=== PATIENT | female | born 1950 | race Hispanic/Latino ===

== ENCOUNTER → 2019-08-04 | Day surgery (SDC) | payer MEDICARE ==
[2019-08-03 12:22] LABS: BASOPHILS # (AUTO) 0.1 (0.0-0.1); BASOPHILS % 0.4 % (0.0-1.0); EOSINOPHILS # (AUTO) 0.2 (0.0-0.4); HEMATOCRIT 41.6 % (34.2-44.1); LYMPHOCYTES # (AUTO) 4.1 (1.0-3.2); LYMPHOCYTES % 34.4 % (18.0-39.1); MEAN CORPUSCULAR HEMOGLOBIN 28.4 pg (28-32); MEAN CORPUSCULAR HGB CONC 31.3 g/dL (31-35); MEAN CORPUSCULAR VOLUME 90.8 fL (81-99); MONOCYTES # (AUTO) 0.7 (0.2-0.8); MONOCYTES % 6.1 % (4.4-11.3); NEUTROPHILS # (AUTO) 6.7 (2.1-6.9); NEUTROPHILS % 56.8 % (38.7-80.0); PLATELET COUNT 289 x10e3/uL (140-360); RED BLOOD COUNT 4.58 x10e6/uL (3.6-5.1); RED CELL DISTRIBUTION WIDTH 13.3 % (11.7-14.4)
[~2019-08-04] MED LIST: CLOPIDOGREL75 MG PO; CRESTOR10 MG PO; LIDOCAINE HCL 2% LOCAL INJ 5 ML SDV VIAL INJ ONE; LISINOPRIL-HCT1 EAC2 PO; MECLIZINE HCL12.5 MG PO; MIDAZOLAM HCL 2 MG/2 ML VIAL ONE; NOVOLIN N100 UNIT/1 SQ; NOVOLIN R100 UNIT/1 SQ; PROPOFOL IV EMULSION 10 MG/ML 50 ML VIAL ONE
--- OUTSIDE RECORDS SUMMARY | 2019-08-04 06:40 | XMS REPORT ---
Author Author [facility] Address Unknown Phone Unavailable Care Team Providers Care Configuration Technician Name Role Phone Unavailable Unavailable Payers Payer Name Policy Type Policy Number Effective Date Expiration Date Problems This patient has no known problems. Allergies, Adverse Reactions, Alerts Allergy Name Allergy Type Status Severity Reaction(s) Onset Date Inactive Date Treating Clinician Comments No Known Allergies DA Active U 2017-08-05 00:00:00 Medications This patient has no known medications. Results Test Description Test Time Test Comments Text Results Atomic Results Result Comments GLUBED 2019-05-10 12:03:00 GLUBED (test code=GLUBED) 239 mg/dL 74-106 Performed by certified cover making machine operator at [facility] [id number] 07:34:00* Test Item Value Reference Range Comments GLUBED (test code=GLUBED) 173 mg/dL 74-106 Performed by certified cover making machine operator at [facility] [id number] 20:42:00* Test Item Value Reference Range Comments GLUBED (test code=GLUBED) 223 mg/dL 74-106 Performed by certified cover making machine operator at [facility] [id number] 16:23:00* Test Item Value Reference Range Comments GLUBED (test code=GLUBED) 172 mg/dL 74-106 Performed by certified cover making machine operator at [facility] [id number] 11:41:00* Test Item Value Reference Range Comments GLUBED (test code=GLUBED) 205 mg/dL 74-106 Performed by certified cover making machine operator at [facility] [id number] 07:23:00* Test Item Value Reference Range Comments GLUBED (test code=GLUBED) 128 mg/dL 74-106 Performed by certified cover making machine operator at [facility] BASIC METABOLIC [id number] 06:17:00* Test Item Value Reference Range Comments SODIUM (test code=NA) 138 mmol/L 136-145 POTASSIUM (test code=K) 4.1 mmol/L 3.5-5.1 CHLORIDE (test code=CL) 105.0 mmol/L 98-107 CARBON DIOXIDE (test code=CO2) 23.0 mmol/L 21-32 ANION GAP (test code=GAP) 14.1 10-20 GLUCOSE (test code=GLU) 134 mg/dL 74-106 BLOOD UREA NITROGEN (test code=BUN) 13 mg/dL 7-18 GLOMERULAR FILTRATION RATE (test code=GFR) > 60 mL/min >=60 Estimated GFR by using Modified MDRD formula.Chronic kidney disease is defined as either kidney damageor GFR <60 mL/min/1.73 m2 for >3 months. CREATININE (test code=CREAT) 0.80 mg/dL 0.55-1.02 Note change in reference range due to change in reagent. BUN/CREATININE RATIO (test code=BUN/CREA) 16.3 10-20 CALCIUM (test code=CA) 8.8 mg/dL 8.5-10.1 LIPID PROFILE (CORONARY RISK)2019-05-09 06:17:00* Test Item Value Reference Range Comments TRIGLYCERIDES (test code=TRIG) 142 mg/dL 20-150 CHOLESTEROL (test code=CHOL) 155 mg/dL 0-200 CHOLESTEROL/HDL RATIO (test code=CHOLHDL) 3.0 RATIO 0-4.9 RISK ASSOCIATED WITH CHOL/HDL RATIOS: Risk Male Female1/2 AVERAGE 3.43 3.27AVERAGE 4.97 4.442X AVERAGE 9.55 7.053X AVERAGE 23.39 11.04 REFERENCE VALUE IS RELATED TO RISK LEVELS ASRECOMMENDED BY THE ABBEY. HEART, LUNG, AND BLOOD INST. HDL CHOLESTEROL (test code=HDL) 49 mg/dL 40-60 LIPOPROTEIN LDL (test code=LDL) 82 mg/dL 100-129 Reference Interval: mg/dL mmol/L Optimal <100 <2.6Near/above optimal 100-129 2.6- 3.3Borderline High 130-159 3.4-4.1High 160-189 4.1-4.9Very High >=190 >=4.9=========This LDL result is a direct measurement.========= [id number] 06:06:00* Test Item Value Reference Range Comments GLYCOSYLATED HEMOGLOBIN (HA1C) (test code=GLYHGB) 8.5 % HbA1 4.8-6.0 ESTIMATED AVERAGE GLUCOSE (test code=EAG) 197 MG/DL CBC W/AUTO [id number] 05:50:00* Test Item Value Reference Range Comments WHITE BLOOD CELL (test code=WBC) 9.0 K/mm3 4.5-12.5 RED BLOOD CELL (test code=RBC) 4.26 mill/mm3 3.7-5.2 HEMOGLOBIN (test code=HGB) 12.1 gram/dL 11.5-15.5 HEMATOCRIT (test code=HCT) 39.6 % 36.0-46.0 MEAN CELL VOLUME (test code=MCV) 93.0 fL 80-98 MEAN CELL HGB (test code=MCH) 28.4 picogram 27.0-33.0 MEAN CELL HGB CONCETRATION (test code=MCHC) 30.6 gram/dL 33.0-36.0 RED CELL DISTRIBUTION WIDTH (test code=RDW) 12.8 % 11.6-16.2 RED CELL DISTRIBUTION WIDTH SD (test code=RDW-SD) 43.3 fL 37.0-51.0 PLATELET COUNT (test code=PLT) 254 K/mm3 150-450 MEAN PLATELET VOLUME (test code=MPV) 9.8 fL 6.7-11.0 NEUTROPHIL % (test code=NT%) 45.1 % 39.0-69.0 IMMATURE GRANULOCYTE % (test code=IG%) 0.3 % 0.0-5.0 LYMPHOCYTE % (test code=LY%) 43.6 % 25.0-55.0 MONOCYTE % (test code=MO%) 7.5 % 0.0-10.0 EOSINOPHIL % (test code=EO%) 2.8 % 0.0-5.0 BASOPHIL % (test code=BA%) 0.7 % 0.0-1.0 NUCLEATED RBC % (test code=NRBC%) 0.0 % 0-0 NEUTROPHIL # (test code=NT#) 4.05 K/mm3 1.8-7.7 IMMATURE GRANULOCYTE # (test code=IG#) 0.03 x10 3/uL 0-0.03 LYMPHOCYTE # (test code=LY#) 3.91 K/mm3 1.0-5.0 MONOCYTE # (test code=MO#) 0.67 K/mm3 0-0.8 EOSINOPHIL # (test code=EO#) 0.25 K/mm3 0.0-0.5 BASOPHIL # (test code=BA#) 0.06 K/mm3 0.0-0.2 NUCLEATED RBC # (test code=NRBC#) 0.00 K/mm3 0.0-0.1 MANUAL DIFF REQUIRED (test code=MDIFF) NO CBC W/AUTO [id number] 05:48:00* Test Item Value Reference Range Comments WHITE BLOOD CELL (test code=WBC) K/mm3 4.5-12.5 RED BLOOD CELL (test code=RBC) mill/mm3 3.7-5.2 HEMOGLOBIN (test code=HGB) 12.1 gram/dL 11.5-15.5 HEMATOCRIT (test code=HCT) 39.6 % 36.0-46.0 MEAN CELL VOLUME (test code=MCV) fL 80-98 MEAN CELL HGB (test code=MCH) picogram 27.0-33.0 MEAN CELL HGB CONCETRATION (test code=MCHC) gram/dL 33.0-36.0 RED CELL DISTRIBUTION WIDTH (test code=RDW) % 11.6-16.2 RED CELL DISTRIBUTION WIDTH SD (test code=RDW-SD) fL 37.0-51.0 PLATELET COUNT (test code=PLT) K/mm3 150-450 MEAN PLATELET VOLUME (test code=MPV) fL 6.7-11.0 NEUTROPHIL % (test code=NT%) % 39.0-69.0 IMMATURE GRANULOCYTE % (test code=IG%) % 0.0-5.0 LYMPHOCYTE % (test code=LY%) % 25.0-55.0 MONOCYTE % (test code=MO%) % 0.0-10.0 EOSINOPHIL % (test code=EO%) % 0.0-5.0 BASOPHIL % (test code=BA%) % 0.0-1.0 NEUTROPHIL # (test code=NT#) K/mm3 1.8-7.7 LYMPHOCYTE # (test code=LY#) K/mm3 1.0-5.0 MONOCYTE # (test code=MO#) K/mm3 0-0.8 EOSINOPHIL # (test code=EO#) K/mm3 0.0-0.5 BASOPHIL # (test code=BA#) K/mm3 0.0-0.2 [id number] 01:43:00* Test Item Value Reference Range Comments TROPONIN-I (test code=TROPI) <0.015 ng/mL 0-0.045 COMMENTS TO AIR POLLUTION INSPECTOR: COLLECT 3 HOURS AFTER PREVIOUS [id number] 22:21:00* Test Item Value Reference Range Comments TROPONIN-I (test code=TROPI) <0.015 ng/mL 0-0.045 COMMENTS TO AIR POLLUTION INSPECTOR: COLLECT 3 HOURS AFTER PREVIOUS SAMPLE- CT ABD PELVIS [id number] 15:48:00 Name: YAMILETH SHEPARD [facility] : 1950 Age/S: 68 / F [address] [facility] Unit #: [id number] Loc: [place] [address] Phys: Andrew Adamson MD Acct: [id number] Dis Date: Status: REG ER PHONE #: [phone] Exam Date: 05/08/2019 4888 FAX #: [phone] Reason: upper abd pain EXAMS: CPT CODE: [id number] CT ABD PELVIS W/CONT [id number] REASON FOR EXAM: upper abd pain EXAM ORDER DATE: 05/08/2019 1:40 PM Ordering M.DKira: Andrew Adamson MD PROCEDURE: - CT ABD PELVIS W/CONT contrast-enhanced axial CT images were acquired through the abdomen/pelvis at 5 mm intervals. Sagittal and coronal reformatted images were generated. Automated exposure control was utilized for this reduction. Phases of contrast: venous and delayed COMPARISON: None FINDINGS: Visualized thorax: Normal Hepatobiliary system: Scattered calcified granulomas are present in the liver. Pancreas: Atrophic with fatty replacement. Spleen: Normal Adrenal glands: Normal Genitourinary system: Areas of cortical thinning in the mid pole to upper pole of the left kidney may represent scarring from a remote infectious process. Bladder and reproductive organs are within normal limits. Gastrointestinal tract and a ppendix: Calcified appendicolith is present. No findings to suggest append icitis however. Stomach and small bowel are within normal limits. Moderate colonic stool burden is present. Abdominal vascular structu res: Atherosclerotic disease is seen throughout the abdominal aorta and ex tends into the iliac arteries. Peritoneum and retroperitoneum: No free fluid or free air. No omental or mesenteric masses. No abnormal lym ph nodes. Musculoskeletal structures and abdominal wall: Degenerat celine changes PAGE 1 Signed Report ( CONTINUED) Name: YAMILETH SHEPARD [facility] : 1950 Age/S: 68 / F [address] [facility] U nit #: [id number] Loc: [place] [address] Phys: Andrew Adamson MD Acct: [id number] Dis Date: Status: REG ER PHONE #: [phone] Exam Date: 05/08/2019 1514 FAX #: [phone] Reason: upper abd pain EXAMS: CPT CODE: [id number] CT ABD PELVIS W/CONT [id number] <Continued> are seen throughout the visualized spine. IMPRESSION: No acute intra-abdominal process. Calcified granulomas in the liver may be from a remote infectious process. Cortical scarring in the left kidney likely represent sequela from a remote infection. Calcified appendicolith. No CT findings to suggest acute appendicitis however. at 15 48 Reported and signed by: Sammy Moody MD CC: Jonathan Barr M.D.; Andrew Adamson MD Technol ogist:Dominga Ruiz RT(R),CT CTDI: DLP: Trnscb Date/Time: 05/08/2019 (6760) [id number] Orig Print D/T: S: 05/08/2019 (5146) PAGE 2 Signed Report URINALYSIS [id number] 15:02:00* Test Item Value Reference Range Comments UA COLOR (test code=COLU) COLORLESS YELLOW UA APPEARANCE (test code=APPU) CLEAR CLEAR UA GLUCOSE DIPSTICK (test code=DGLUU) 300 (2+) mg/dL NEGATIVE UA BILIRUBIN DIPSTICK (test code=BILU) NEGATIVE mg/dL NEGATIVE UA KETONE DIPSTICK (test code=KETU) NEGATIVE mg/dL NEGATIVE UA SPECIFIC GRAVITY (test code=SGU) 1.005 1.001-1.035 UA BLOOD DIPSTICK (test code=SERJIO) Negative mg/dL NEGATIVE UA PH DIPSTICK (test code=KIRBY) 7.5 5.0-8.0 UA PROTEIN DIPSTICK (test code=PROU) NEGATIVE mg/dL NEGATIVE UA UROBILINIOGEN DIPSTICK (test code=URO) Normal mg/dL NEGATIVE UA NITRITE DIPSTICK (test code=CRICKET) NEGATIVE NEGATIVE UA LEUKOCYTE ESTERASE W REFLEX (test code=LEUUR) NEGATIVE Lamont/uL NEGATIVE UA WBC (test code=WBCU) 0-5 per HPF 0-5 UA RBC (test code=RBCU) NONE SEEN #/HPF 0-5 UA EPITHELIAL CELLS (test code=EPIU) FEW per HPF FEW UA BACTERIA (test code=BACU) NONE SEEN #/HPF NONE Urine Source? Clean CatchBASIC METABOLIC [id number] 14:36:00* Test Item Value Reference Range Comments SODIUM (test code=NA) 136 mmol/L 136-145 POTASSIUM (test code=K) 4.3 mmol/L 3.5-5.1 CHLORIDE (test code=CL) 101.0 mmol/L 98-107 CARBON DIOXIDE (test code=CO2) 29.0 mmol/L 21-32 ANION GAP (test code=GAP) 10.3 10-20 GLUCOSE (test code=GLU) 242 mg/dL 74-106 BLOOD UREA NITROGEN (test code=BUN) 17 mg/dL 7-18 GLOMERULAR FILTRATION RATE (test code=GFR) 45 mL/min >=60 Estimated GFR by using Modified MDRD formula.Chronic kidney disease is defined as either kidney damageor GFR <60 mL/min/1.73 m2 for >3 months. CREATININE (test code=CREAT) 1.20 mg/dL 0.55-1.02 Note change in reference range due to change in reagent. BUN/CREATININE RATIO (test code=BUN/CREA) 14.2 10-20 CALCIUM (test code=CA) 9.2 mg/dL 8.5-10.1 HEPATIC FUNCTION [id number] 14:36:00* Test Item Value Reference Range Comments TOTAL PROTEIN (test code=PROT) 7.8 gram/dL 6.4-8.2 ALBUMIN (test code=ALB) 3.7 g/dL 3.4-5.0 GLOBULIN (test code=GLOB) 4.1 gram/dL 2.7-4.2 ALBUMIN/GLOBULIN RATIO (test code=A/G) 0.9 0.75-1.50 BILIRUBIN TOTAL (test code=BILT) 0.30 mg/dL 0.0-1.0 BILIRUBIN DIRECT (test code=BILD) 0.10 mg/dL 0.0-0.20 SGOT/AST (test code=AST) 27 IUnit/L 15-37 SGPT/ALT (test code=ALT) 25 IUnit/L 12-78 ALKALINE PHOSPHATASE TOTAL (test code=ALKP) 76 IUnit/L 45-117 Note change in reference range due to change in reagent. [id number] 14:36:00* Test Item Value Reference Range Comments LIPASE (test code=LIP) 65 U/L 73.0-393.0 [id number] 14:36:00* Test Item Value Reference Range Comments TROPONIN-I (test code=TROPI) <0.015 ng/mL 0-0.045 BASIC METABOLIC [id number] 14:26:00* Test Item Value Reference Range Comments SODIUM (test code=NA) 136 mmol/L 136-145 POTASSIUM (test code=K) 4.3 mmol/L 3.5-5.1 CHLORIDE (test code=CL) 101.0 mmol/L 98-107 CARBON DIOXIDE (test code=CO2) mmol/L 21-32 ANION GAP (test code=GAP) 10-20 GLUCOSE (test code=GLU) mg/dL 74-106 BLOOD UREA NITROGEN (test code=BUN) mg/dL 7-18 GLOMERULAR FILTRATION RATE (test code=GFR) mL/min >=60 CREATININE (test code=CREAT) mg/dL 0.55-1.02 BUN/CREATININE RATIO (test code=BUN/CREA) 10-20 CALCIUM (test code=CA) mg/dL 8.5-10.1 HEPATIC FUNCTION [id number] 14:26:00* Test Item Value Reference Range Comments TOTAL PROTEIN (test code=PROT) gram/dL 6.4-8.2 ALBUMIN (test code=ALB) g/dL 3.4-5.0 GLOBULIN (test code=GLOB) gram/dL 2.7-4.2 ALBUMIN/GLOBULIN RATIO (test code=A/G) 0.75-1.50 BILIRUBIN TOTAL (test code=BILT) mg/dL 0.0-1.0 BILIRUBIN DIRECT (test code=BILD) mg/dL 0.0-0.20 SGOT/AST (test code=AST) IUnit/L 15-37 SGPT/ALT (test code=ALT) IUnit/L 12-78 ALKALINE PHOSPHATASE TOTAL (test code=ALKP) IUnit/L 45-117 [id number] 14:26:00* Test Item Value Reference Range Comments LIPASE (test code=LIP) U/L 73.0-393.0 [id number] 14:26:00* Test Item Value Reference Range Comments TROPONIN-I (test code=TROPI) ng/mL 0-0.045 CBC W/O [id number] 14:17:00* Test Item Value Reference Range Comments WHITE BLOOD CELL (test code=WBC) 9.3 K/mm3 4.5-12.5 RED BLOOD CELL (test code=RBC) 4.45 mill/mm3 3.7-5.2 HEMOGLOBIN (test code=HGB) 12.7 gram/dL 11.5-15.5 HEMATOCRIT (test code=HCT) 41.3 % 36.0-46.0 MEAN CELL VOLUME (test code=MCV) 92.8 fL 80-98 MEAN CELL HGB (test code=MCH) 28.5 picogram 27.0-33.0 MEAN CELL HGB CONCETRATION (test code=MCHC) 30.8 gram/dL 33.0-36.0 RED CELL DISTRIBUTION WIDTH (test code=RDW) 12.7 % 11.6-16.2 PLATELET COUNT (test code=PLT) 277 K/mm3 150-450 MEAN PLATELET VOLUME (test code=MPV) 9.8 fL 6.7-11.0 CBC W/O [id number] 14:15:00* Test Item Value Reference Range Comments WHITE BLOOD CELL (test code=WBC) K/mm3 4.5-12.5 RED BLOOD CELL (test code=RBC) mill/mm3 3.7-5.2 HEMOGLOBIN (test code=HGB) 12.7 gram/dL 11.5-15.5 HEMATOCRIT (test code=HCT) 41.3 % 36.0-46.0 MEAN CELL VOLUME (test code=MCV) fL 80-98 MEAN CELL HGB (test code=MCH) picogram 27.0-33.0 MEAN CELL HGB CONCETRATION (test code=MCHC) gram/dL 33.0-36.0 RED CELL DISTRIBUTION WIDTH (test code=RDW) % 11.6-16.2 PLATELET COUNT (test code=PLT) K/mm3 150-450 MEAN PLATELET VOLUME (test code=MPV) fL 6.7-11.0
--- OUTSIDE RECORDS SUMMARY | 2019-08-04 06:40 | XMS REPORT ---
Author Organization Unknown Address [address] [place] [address] Phone [phone] Care Team Providers Care [employer] Name Role Phone JOSE CRUZ "KUMAR" TRAVIS HIDALGO 3 [phone] NICOLE HAM MD 82 [phone] OSWALDO BARR MD (OPHTHALMOLOGY) 111 [phone] Allergies Code Code System Name Reaction Severity Status Onset NKDA Medications Name Status Start Date Stop Date Allzital 25 mg-325 mg tablet Completed 12/31/2017 amlodipine 5 mg tablet Completed 11/05/2017 atorvastatin 40 mg tablet Take 1 tablet every day by oral route. Completed 07/31/2017 ciprofloxacin 250 mg tablet Active Not available clopidogrel 75 mg tablet Take 1 tablet every day by oral route. Active Not available diclofenac 0.1 % eye drops Active Not available gabapentin 300 mg capsule Active Not available Lantus Solostar U-100 Insulin 100 unit/mL (3 mL) subcutaneous pen Active Not available lisinopril 10 mg-hydrochlorothiazide 12.5 mg tablet Take 1 tablet every day by oral route for 90 days. Active Not available lisinopril 20 mg-hydrochlorothiazide 25 mg tablet Active Not available metformin 1,000 mg tablet Active Not available metformin 850 mg tablet Take 1 tablet twice a day by oral route. Completed 07/31/2017 Novolin N NPH U-100 Insulin isophane 100 unit/mL subcutaneous susp 30U SQ Q AM and 15U SQ Q HS Completed 12/31/2017 Novolin R Regular U-100 Insulin 100 unit/mL injection solution use per sliding scale tid as needed Active Not available Novolog Flexpen U-100 Insulin aspart 100 unit/mL subcutaneous inyectar 5-20 unidades antes de cada comida, wilma veces cada shani Completed 01/15/2018 pravastatin 80 mg tablet Take 1 tablet every day by oral route for 90 days. Active Not available prednisolone acetate 1 % eye drops,suspension Active Not available rosuvastatin 40 mg tablet Completed 01/15/2018 Tradjenta 5 mg tablet Take 1 tablet every day by oral route for 90 days. Completed 11/05/2017 Vitamin D2 50,000 unit capsule Take 1 capsule every week by oral route for 90 days. Completed 11/05/2017 Vitamin D3 2,000 unit capsule Take 1 capsule every day by oral route for 90 days. Active Not available Vitamin D3 5,000 unit tablet minnie 1 tablea por via oral silviano vez cada shani Completed 12/03/2017 Problems Name Status Onset Date Source Type 2 Diabetes Mellitus Active 07/29/2017 Vitamin D Deficiency Active 07/29/2017 Hyperlipidemia Active 07/29/2017 Essential Hypertension Active 08/03/2017 History of Peripheral Vascular Angioplasty Active 11/05/2017 Peripheral Vascular Disease Active 11/12/2017 Senile Osteopenia Active 12/17/2017 Procedures Date Name Performed by 04/11/2009 Colonoscopy Information not available 10/12/2008 Cataract Surgery Complex Notes: Right Information not available 10/12/2005 Cataract Surgery Complex Notes: Left eye Information not available 10/12/1994 Tonsillectomy Information not available 01/09/1989 Delivery Information not available 05/31/1980 Delivery Information not available 12/03/2017 Electrocardiogram [facility] [address] [facility] [address] [place] [id number] (Work Place) 12/03/2017 MAMMO, Screening, Bilateral [facility] [address] [place], [place] [id number] (Work Place) 12/03/2017 Bone Density [facility] [address] [place], [place] [id number] (Work Place) 01/07/2018 MRI, Brain + Brain Stem, W/wo Contrast [facility] [address] [place], [place] [id number] (Work Place) Lab Results Date Name Specimen Result Interpretation Description Value Range Status Address 12/10/2017 Fecal Occult Blood, Stool Fecal Globin (Medicare) by Immunochemistry not detected Final [facility]: [address] 12/06/2017 Electrocardiogram Rate & Rhythm [facility]: [address] [address], [place] Q[place] [facility] [address] [address], [place] Interval [facility]: [address] [facility] [address], [place] Duration [facility]: [address] [facility] 200, [place] Interval [facility] [place]: [address] [facility] [address], [place] 12/03/2017 Vitamin D, 25-Hydroxy, Total, Serum Low Vitamin D, 25-Hydroxy 20.1 NG/mL 30.0-100.0 NG/mL Final [facility]: [address] 12/03/2017 HbA1C (Hemoglobin a1C), Blood High Hemoglobin a1C 10.2 % 4.8-5.6 % Final [facility]: [address] Estim. Avg Glu (EAG) 246 Final [facility]: [address] 12/03/2017 Lipid Panel, Serum High Cholesterol, Total 206 mg/dL 100- 199 mg/dL Final [facility]: [id number] [id number] Debbi Clemens [address] High Triglycerides 172 mg/dL 0-149 mg/dL Final [facility]: [id number] [id number] Debbi oswaldo [address] HDL Cholesterol 65 mg/dL >39 mg/dL Final [facility]: [address] VLDL Cholesterol Aly 34 5-40 Final [facility]: [address] High LDL Cholesterol Calc 107 0-99 Final [facility]: [address] 12/03/2017 CMP, Serum or Plasma High Glucose, Serum 179 mg/dL 65-99 mg/dL Final [facility]: [id number] [id number] Debbi Clemens [address] Bun 17 mg/dL 8-27 mg/dL Final [facility]: [address] Creatinine, Serum 0.61 mg/dL 0.57-1.00 mg/dL Final [facility]: [address] eGFR If Nonafricn AM 95 >59 Final [facility]: [address] eGFR If Africn AM 110 >59 Final [facility]: [id number] [id number] Debbi Clemens [address] BUN/creatinine Ratio 28 12-28 Final [facility]: [id number] [id number] Debbi Clemens [address] Sodium, Serum 142 mmol/L 134-144 mmol/L Final [facility]: [address] Potassium, Serum 4.9 mmol/L 3.5-5.2 mmol/L Final [facility]: [address] Chloride, Serum 97 mmol/L 96-106 mmol/L Final [facility]: [address] Carbon Dioxide, Total 28 mmol/L 18-29 mmol/L Final [facility]: [address] High Calcium, Serum 10.4 mg/dL 8.7-10.3 mg/dL Final [facility]: [address] Protein, Total, Serum 7.7 g/dL 6.0-8.5 g/dL Final [facility]: [address] Albumin, Serum 4.4 g/dL 3.6-4.8 g/dL Final [facility]: [address] Globulin, Total 3.3 1.5-4.5 Final [facility]: [address] A/g Ratio 1.3 1.2-2.2 Final [facility]: [address] Bilirubin, Total 0.3 mg/dL 0.0-1.2 mg/dL Final [facility]: [address] Alkaline Phosphatase, S 92 IU/L 39-117 IU/L Final [facility]: [facility] Debbi oswaldo [address] Ast (Sgot) 16 IU/L 0-40 IU/L Final [facility]: [address] Alt (Sgpt) 15 IU/L 0-32 IU/L Final [facility]: [address] Jacobsen [address] [place] [address] 12/03/2017 TSH, Serum or Plasma Tsh 1.380 uIU/mL 0.450-4.500 uIU/mL Final [facility] 12/[facility]/2017 CBC W/ Auto Diff High Wbc 11.7 x10e3/uL 3.4-10.8 x10e3/uL Final [facility]: [address] Rbc 4.47 x10e6/uL 3.77-5.28 x10e6/uL Final [facility]: [address] Calderon [place] Hemoglobin 12.8 g/dL 11.1-15.9 g/dL Final [facility]: [address] Calderon [place] Hematocrit 41.2 % 34.0-46.6 % Final [facility]: [address] Jacobsen [facility] [place] Mcv 92 fL 79-97 fL Final [facility]: [address] Mch 28.6 pg 26.6-33.0 pg Final [facility]: [address] Jacobsen [facility] [place] Low Mchc 31.1 g/dL 31.5-35.7 g/dL Final [facility]: [address] [facility] Rdw 12.5 % 12.3-15.4 % Final [facility]: [address] Platelets 360 x10e3/uL 150-379 x10e3/uL Final [facility]: [address] Neutrophils 51 % not estab. % Final [facility]: [address] Lymphs 43 % not estab. % Final [facility]: [address]on [place] Monocytes 5 % not estab. % Final [facility]: [address] Clemens [facility] Eos 1 % not estab. % Final [facility]: [address] Basos 0 % not estab. % Final [facility]: [address]sen [address] [place] [address] Immature Cells comment Cancelled [facility]: [address] Neutrophils (Absolute) 5.8 x10e3/uL 1.4-7.0 x10e3/uL Final [facility]: [address]sen [address] [place] [address] High Lymphs (Absolute) 5.0 x10e3/uL 0.7-3.1 x10e3/uL Final [facility]: [address] Monocytes(absolute) 0.6 x10e3/uL 0.1-0.9 x10e3/uL Final [facility]: [address] Eos (Absolute) 0.2 x10e3/uL 0.0-0.4 x10e3/uL Final [facility]: [address]on [place] Baso (Absolute) 0.0 x10e3/uL 0.0-0.2 x10e3/uL Final [facility]: [address] Immature Granulocytes 0 % not estab. % Final [facility]: [address] Immature Grans (Abs) 0.0 x10e3/uL 0.0-0.1 x10e3/uL Final [facility]: [address] Hematology Comments: comment Cancelled [facility]: [address] [facility] [facility] 07/29/2017 CBC W/ Auto Diff Wbc 9.6 x10e3/uL 3.4-10.8 x10e3/uL Final [facility]: [address] Rbc 4.64 x10e6/uL 3.77-5.28 x10e6/uL Final [facility]: [address] Hemoglobin 13.5 g/dL 11.1-15.9 g/dL Final [facility]: [address] Hematocrit 43.7 % 34.0-46.6 % Final [facility]: [address] Mcv 94 fL 79-97 fL Final [facility]: [address] Mch 29.1 pg 26.6-33.0 pg Final [facility]: [address] Low Mchc 30.9 g/dL 31.5-35.7 g/dL Final [facility]: [address] Rdw 12.4 % 12.3-15.4 % Final [facility]: [address] Platelets 322 x10e3/uL 150-379 x10e3/uL Final [facility]: [address] Neutrophils 41 % not estab. % Final [facility]: [address] Lymphs 46 % not estab. % Final [facility]: [address] Calderon, [place] Monocytes 8 % not estab. % Final [facility]: [address] Calderon [place] Eos 2 % not estab. % Final [facility]: [address] Calderon, [place] Basos 1 % not estab. % Final [facility]: [address]on [place] Immature Cells comment Cancelled [facility]: [address] Calderon [place] Neutrophils (Absolute) 3.9 x10e3/uL 1.4-7.0 x10e3/uL Final [facility]: [address]sen [facility] [place] High Lymphs (Absolute) 4.5 x10e3/uL 0.7-3.1 x10e3/uL Final [facility]: [address] [place] [address] Monocytes(absolute) 0.7 x10e3/uL 0.1-0.9 x10e3/uL Final [facility]: [address]sen [facility] [place] Eos (Absolute) 0.2 x10e3/uL 0.0-0.4 x10e3/uL Final [facility]: [address]sen [facility] [place] Baso (Absolute) 0.1 x10e3/uL 0.0-0.2 x10e3/uL Final [facility]: [address]sen [facility] [place] Immature Granulocytes 2 % not estab. % Final [facility]: [address]sen [facility] [place] Immature Grans (Abs) 0.1 x10e3/uL 0.0-0.1 x10e3/uL Final [facility]: [address] Hematology Comments: comment Cancelled [facility]: [address]on [place] 07/29/2017 CMP, Serum or Plasma Alt 19 U/L 0-55 U/L Final [facility]: [address] Ast 25 U/L 5-34 U/L Final [facility]: [address] Bun 16.0 mg/dL 9.8-20.1 mg/dL Final [facility]: [address] Alk Phos 144 unit/L 40-150 unit/L Final [facility]: [address]sen [facility], [place] CRITICAL HIGH Glucose 403 mg/dL 70-99 mg/dL Final [facility]: [address] Calderon, [place] Albumin 3.8 g/dL 3.5-5.0 g/dL Final [facility]: [address] [facility] Creatinine 0.94 mg/dL 0.57-1.11 mg/dL Final [facility]: [address] [place] [address] Low eGFR Non- 60 mL/min/1.73m2 >60 mL/min/1.73m2 Final [facility]: [address] [place] [address] Total Bilirubin 0.3 mg/dL 0.2-1.2 mg/dL Final [facility]: [address] [place] [address] eGFR - >60 mL/min/1.73m2 >60 mL/min/1.73m2 Final [facility]: [address] [place] [address] Sodium 140 mEq/L 136-145 mEq/L Final [facility]: [address] Potassium 5.0 mEq/L 3.5-5.1 mEq/L Final [facility]: [address] [place] [address] Chloride 98 mmol/L 98-107 mmol/L Final [facility]: [address] [place] [address] Total Protein 8.2 g/dL 6.4-8.3 g/dL Final [facility]: [address] [facility] Calcium 10.2 mg/dL 8.4-10.2 mg/dL Final [facility]: [address] Co2 29.1 mmol/L 23.0-31.0 mmol/L Final [facility]: [address] Anion Gap 13 calc Final [facility]: [address] [facility] [facility] 07/29/2017 Lipid Panel, Serum Hdl 51 mg/dL 40-60 mg/dL Final [facility]: [address] High Triglyceride 326 mg/dL 0-149 mg/dL Final [facility]: [address] VLDL Calc. 65 mg/dL Final [facility]: [address] cholesterol/HDL Ratio 5.7 mg/dL Final [facility]: [address] High non-HDL Cholesterol Calc. 238 mg/dL 0-160 mg/dL Final [facility]: [address] High Cholesterol 289 mg/dL 0-199 mg/dL Final [facility]: [address] High LDL Calc. 173 mg/dL 0-130 mg/dL Final [facility]: [address] [place] [address] 07/29/2017 T4, Total, Serum T4 Total 8.77 ug/dL 4.87-11.72 ug/dL Final [facility]: [address] [place] [address] 07/29/2017 TSH, Serum or Plasma Tsh 0.864 uIU/mL 0.350-4.940 uIU/mL Final [facility]: [address] [place] [address] 07/29/2017 Vitamin D, 25-Hydroxy, Total, Serum Low Vitamin D 25OH 18.5 NG/mL 30.0-96.0 NG/mL Final [facility]: [address] [place] [address] 07/29/2017 HbA1C (Hemoglobin a1C), Blood High A1C W/eag 10.6 % 1.0- 5.7 % Final [facility]: [address] [place] [address] Average Blood Glucose 258 mg/dL Final [facility]: [address] [place] [address] Albumin:creatinine Ratio, Urine Type Urine Microlalbumin 30 mg/L [facility]: [address] [place] [address] Type Urine Creatinine 10 mg/dL [facility]: [address] [place] [address] Type A:C Ratio >300 mg/g (High Abnormal) [facility]: [address] [place] [address] Past Encounters 01/15/2018 Total Palsy of Right Oculomotor Nerve; Essential Hypertension; Neurologic Disorder Associated with Type 2 Diabetes Mellitus Leigh Leary PA: [address] [place] [phone], Ph. 01/07/2018 Total Palsy of Right Oculomotor Nerve; Type 2 Diabetes Mellitus; Essential Hypertension; History of Peripheral Vascular Angioplasty; Hyperlipidemia Jose Cruz Barr MD: [id number] [phone], Ph. 12/31/2017 Essential Hypertension; Hyperlipidemia; Peripheral Vascular Disease; Type II Diabetes Mellitus Uncontrolled; Viral Immunization; Diabetic Cataract Associated with Type 2 Diabetes Mellitus; Ptosis of Eyelid Leigh Leary PA: [address] [phone], Ph. 12/03/2017 Adult Health Examination; Body Mass Index 25-29 - Overweight; Essential Hypertension; Type 2 Diabetes Mellitus; Peripheral Vascular Disease; History of Peripheral Vascular Angioplasty; Hyperlipidemia; Vitamin D Deficiency; Advance Directive Discussed with Patient; Depression Screening; Pain in Lower Limb; Screening for Malignant Neoplasm of Colon; Screening for Malignant Neoplasm of Breast; Screening for Osteoporosis Jose Cruz Barr MD: [address] [place] [phone], Ph. 11/05/2017 Type 2 Diabetes Mellitus; Essential Hypertension; Vitamin D Deficiency; Peripheral Vascular Disease; History of Peripheral Vascular Angioplasty Jose Cruz Barr MD: [address] [place] [phone], Ph. 08/03/2017 Type II Diabetes Mellitus Uncontrolled; Hyperlipidemia; Vitamin D Deficiency; Essential Hypertension SHARI CorderoP: [address] [place] [phone], Ph. 07/29/2017 Body Mass Index 25-29 - Overweight; Essential Hypertension; Type 2 Diabetes Mellitus; Type 2 Diabetes Mellitus with Peripheral Angiopathy; Peripheral Vascular Disease; Diabetic Foot Ulcer; Hyperlipidemia; Vitamin D Deficiency; Immunization Jose Cruz Barr MD: [address] [phone], Ph. Social History Smoking Status Never Smoker Vaccine List Vaccine Type influenza, high dose seasonal 07/29/20170.5 mL pneumococcal conjugate PCV 13 07/29/20170.5 mL Tdap 11/12/2016 zoster 12/31/20170.65 mL Notes: declined Plan of Care Patient Instructions Please follow up with your doctor in two weeks. Follow up with any specialists that we discussed during your visit today. If you need help getting your medications filled, our [facility] can sync medication refills, deliver within a 10 mile radius, or [employer] overnight at no additional cost. Please watch for warning symptoms that may occur: *fever *redness/oozing at surgical site *shortness of breath *uncontrolled pain *unexpected weight gain/loss *high or low blood pressure *chest pain *confusion *any other health concerns Call us at if you experience these symptoms. Evening and Thursday clinic hours are available if you have problems. If you have problems after hours, you can reach the [facility] physician [employer] at . Reminders Provider Appointments None recorded. Lab None recorded. Referral None recorded. Procedures None recorded. Surgeries None recorded. Imaging None recorded. Vitals 01/15/2018 07:45AM TCM Height Weight BMI Blood Pressure 5 ft 142 lbs 27.7 kg/m2 (1) 84/59 mm[Hg] (2) 88/58 mm[Hg] 01/07/2018 11:15AM Est Patient Height Weight BMI Blood Pressure 5 ft 146 lbs 28.5 kg/m2 130/76 mm[Hg] 12/31/2017 09:15AM Est Patient Height Weight BMI Blood Pressure 5 ft 148 lbs 28.9 kg/m2 (1) 166/74 mm[Hg] (2) 132/72 mm[Hg] 12/03/2017 10:00AM AWV Height Weight BMI Blood Pressure 5 ft 151.2 lbs 29.5 kg/m2 (1) 171/90 mm[Hg] (2) 168/88 mm[Hg] 11/05/2017 03:45PM Est Patient Height Weight BMI Blood Pressure 5 ft 149.6 lbs 29.2 kg/m2 143/77 mm[Hg] 08/03/2017 08:30AM Est Patient Height Weight BMI Blood Pressure 5 ft 148.2 lbs 28.9 kg/m2 (1) 162/85 mm[Hg] (2) 160/81 mm[Hg] 07/29/2017 03:00PM New Patient Height Weight BMI Blood Pressure 5 ft 151.8 lbs 29.6 kg/m2 200/96 mm[Hg]
[2019-08-04 09:40] VITALS: BP 125/63
== END | disposition home or self-care (01) ==
LOC: OR 06:37
PROVIDERS: ATTEND Internal Medicine Gastroenterology
DX: Z12.11 Encounter for screening for malignant neoplasm of colon (principal); I10 Essential (primary) hypertension; E11.9 Type 2 diabetes mellitus without complications; E66.3 Overweight; Z68.29 Body mass index [BMI] 29.0-29.9, adult; K21.9 Gastro-esophageal reflux disease without esophagitis; E78.5 Hyperlipidemia, unspecified; I73.9 Peripheral vascular disease, unspecified; D12.2 Benign neoplasm of ascending colon; Z01.810 Encounter for preprocedural cardiovascular examination; Z01.812 Encounter for preprocedural laboratory examination; Z79.4 Long term (current) use of insulin
CPT/HCPCS: 36415 ×2; 45385; 82948; 85025; 88305; 93005; J2001; J2250; J2704; 45378